=== PATIENT | male | born 1935 | race Caucasian/White ===

== ENCOUNTER → 2020-08-09 | Outpatient (CLI) | payer MEDICARE ==
[~2020-08-09] MED LIST: ASA81BEC PO; AUGMENTIN 875-1 EACH PO; AUGMENTIN 875875 MG PO; CENTRUM SILVER1 EAC1 PO; DILTIAZEM ER300 MG PO; FISH OIL 1,0001 EAC5 PO; FLAX SEED OIL1000 MG PO; GLUCOTROL10 MG PO; IMDUR 30 MG TAB30 M1 PO; LEVOTHROID150 MCG PO; LISINOPRIL40 MG PO; LOPRESSOR 50 MG50 M1 PO; LOPRESSOR25 PO; MEDROLDOSEPACK PO; NORVASC5 MG PO; PIOGLITAZONE15 MG; PLAVIX 75 MG TA75 MG PO; SIMVASTATIN40 MG PO; TRIAMTERENE-HC1 EAC1 PO; TUSSIONEX PENN473 ML PO
--- NOTE | 2020-08-09 14:50 | 2DMMODE ---
[place] [address] 2 D/M-MODE ECHOCARDIOGRAM Name: ROSE MARY MAYORGA JR Room: [facility]#: [id number] Admission: 08/09/20 Attend Phys: Maik Murillo, Discharge: Date of : 31 Date of Service: 08/09/20 1450 Report #: [id number] THIS REPORT FOR: cc: Roman Lee Bradley L. DO Holkins,Altaf Ramesh MD [facility] ~ APPROVED REPORT Study performed: 08/09/2020 13:41:33 EXAM: Comprehensive 2D, Doppler, and color-flow Echocardiogram Patient Location: Out-Patient BSA: 2.36 HR: 59 bpm BP: 140/62 mmHg Other Information Study Quality: Good Indications Murmur 2D Dimensions IVSd: 11.97 (7-11mm) LVOT Diam: 20.70 (18-24mm) LVDd: 57.90 mm PWd: 11.63 (7-11mm) Ascending Ao: 35.47 (22-36mm) LVDs: 39.52 (25-40mm) Aortic Root: 36.51 mm Volumes Left Atrial Volume (Systole) LA ESV Index: 30.40 mL/m2 Aortic Valve AoV Peak Clemente.: 1.76 m/s AO Peak Gr.: 12.39 mmHg LVOT Max P.28 mmHg AO Mean Gr.: 6.96 mmHg LVOT Mean P.48 mmHg LVOT Max V: 1.15 m/s AO V2 VTI: 37.79 cm LVOT Mean V: 0.72 m/s MARY (VTI): 2.38 cm2 LVOT V1 VTI: 26.70 cm Mitral Valve E/A Ratio: 1.47 [place] [address] 2 D/M-MODE ECHOCARDIOGRAM Name: ROSE MARY MAYORGA JR Room: [facility]#: [id number] Admission: 08/09/20 Attend Phys: Maik Murillo, Discharge: Date of : 31 Date of Service: 08/09/20 1450 Report #: [id number] MV Decel. Time: 229.99 ms MV E Max Clemente.: 0.89 m/s MV PHT: 66.70 ms MVA (PHT): 3.30 cm2 TDI E/Lateral E': 7.42 E/Medial E': 14.83 Medial E' Clemente.: 0.06 m/s Lateral E' Clemente.: 0.12 m/s Pulmonary Valve PV Peak Clemente.: 1.36 m/s PV Peak Gr.: 7.36 mmHg Tricuspid Valve RAP Estimate: 5.00 mmHg TR Peak Gr.: 29.36 mmHg RVSP: 34.36 mmHg PA Pressure: 34.36 mmHg Left Ventricle The left ventricle is normal size. There is normal LV segmental wall motion. There is normal left ventricular wall thickness. Left ventricular systolic function is normal. The left ventricular ejection fraction is within the normal range. LVEF is 55%. The left ventricular diastolic function is normal. Right Ventricle The right ventricle is normal size. The right ventricular systolic function is normal. Atria The left atrium size is normal. The right atrium size is normal. Aortic Valve Mild aortic valve sclerosis. No aortic regurgitation is present. No hemodynamically significant valvular aortic stenosis. Mitral Valve The mitral valve is normal in structure. Mild to moderate mitral regurgitation. No evidence of mitral valve stenosis. Tricuspid Valve The tricuspid valve is normal in structure. Mild to moderate tricuspid regurgitation[place] [address] 2 D/M-MODE ECHOCARDIOGRAM Name: ROSE MARY MAYORGA JR Room: [facility]#: [id number] Admission: 08/09/20 Attend Phys: Maik Murillo, Discharge: Date of : 31 Date of Service: 08/09/20 1450 Report #: [id number] The pulmonary valve is normal in structure. There is no pulmonic valvular regurgitation. Great Vessels The aortic root is normal in size. IVC is normal in size and collapses >50% with inspiration. Pericardium There is no pericardial effusion. <Conclusion> The left ventricle is normal size. There is normal left ventricular wall thickness. Left ventricular systolic function is normal. The left ventricular ejection fraction is within the normal range. LVEF is 55%. The left ventricular diastolic function is normal. The right ventricle is normal size. The left atrium size is normal. Mild aortic valve sclerosis. No aortic regurgitation is present. No hemodynamically significant valvular aortic stenosis. The mitral valve is normal in structure. Mild to moderate mitral regurgitation No evidence of mitral valve stenosis. The tricuspid valve is normal in structure. Mild to moderate tricuspid regurgitation. IVC is normal in size and collapses >50% with inspiration. There is no pericardial effusion. There is normal LV segmental wall motion. <ELECTRONICALLY SIGNED> By: Atlaf Palomino MD, FACC 08/09/20 1450 [id number] Altaf Palomino MD, FACC /INF
== END ==
LOC: M.CRD 13:46
PROVIDERS: ATTEND Internal Medicine Cardiovascular Disease
DX: I08.3 Combined rheumatic disorders of mitral, aortic and tricuspid valves (principal)